=== PATIENT | female | born 1975 | race Caucasian/White ===

== ENCOUNTER → 2023-02-20 14:23 | Outpatient (BNVA) | payer OTHER, SELFPAY | PROVIDERS: PCP Family Medicine; Visit Provider Physician Assistant | DX: Z12.11 Encounter for screening for malignant neoplasm of colon (principal); K21.9 Gastro-esophageal reflux disease without esophagitis | CPT/HCPCS: 99202 ==

== ENCOUNTER 2023-10-21 10:55 | Day surgery (SDC) | payer OTHER, SELFPAY ==
--- NOTE | 2023-10-18 10:02 | P.CONAN_ITS ---
Documented by User: Tram Durbin NP 10/18/23 10:02 HPI - Anesthesia Eval Consult details Narrative: 47yo F for ?Upper Endoscopy and Colonoscopy [facility] Active Problems Active Problems: All Active Problems (Updated 02/20/23 @ 15:05 by Viviane Blount PA-C) Encounter for screening colonoscopy (Acute) Chronic GERD (Acute) Past Medical History Medical History (Updated 10/21/23 @ 11:09 by Zeinab Mo, RN) GERD (gastroesophageal reflux disease) HTN (hypertension) Surgical History Surgical History (Updated 10/21/23 @ 11:10 by Zeinab Mo, RN) No pertinent past surgical history Social History Social History (Updated 02/20/23 @ 15:04 by Viviane Blount PA-C) Household Members: Family Alcohol intake: current Alcohol intake frequency: holidays/special occasions only Patient Tobacco Use Status: Never used Tobacco Use of substances other than those prescribed or required for medical reasons: No Are you DNR?: No Advance Directives: No Advance Directives Information Provided: Yes Current occupational status: employed Current occupation: [employer] Allergies Allergy/AdvReac Type Severity Reaction Status Date / Time No Known Allergies Allergy Verified 10/21/23 11:10 Home Medications Medication Instructions Recorded Confirmed Last Taken Type fluticasone propionate 50 1 spray intranasal BID PRN Allergy 02/20/23 10/21/23 Unknown History mcg/actuation nasal Symptoms spray,suspension loratadine 10 mg tablet 10 mg PO QAM 02/20/23 10/21/23 Unknown History losartan 25 mg tablet 25 mg PO DAILY 10/21/23 10/21/23 Unknown History Assessment and Plan Assessment Anesthesia Assessment: Chart Reviewed Documented by User: Haydee Patino MD 10/21/23 12:15 [facility] Past Medical History Medical History (Updated 10/21/23 @ 11:09 by Zeinab Mo RN) GERD (gastroesophageal reflux disease) HTN (hypertension) Family History Family history of problems with anesthesia: No Surgical History Surgical History (Updated 10/21/23 @ 11:10 by Zeinab Mo RN) No pertinent past surgical history History of Problems with Anesthesia: No Social History Social History (Updated 02/20/23 @ 15:04 by Viviane Blount PA-C) Household Members: Family Alcohol intake: current Alcohol intake frequency: holidays/special occasions only Patient Tobacco Use Status: Never used Tobacco Use of substances other than those prescribed or required for medical reasons: No Are you DNR?: No Advance Directives: No Advance Directives Information Provided: Yes Current occupational status: employed Current occupation: [employer] Allergies Allergy/AdvReac Type Severity Reaction Status Date / Time No Known Allergies Allergy Verified 10/21/23 11:10 Home Medications Medication Instructions Recorded Confirmed Last Taken Type fluticasone propionate 50 1 spray intranasal BID PRN Allergy 02/20/23 10/21/23 Unknown History mcg/actuation nasal Symptoms spray,suspension loratadine 10 mg tablet 10 mg PO QAM 02/20/23 10/21/23 Unknown History losartan 25 mg tablet 25 mg PO DAILY 10/21/23 10/21/23 Unknown History Exam Airway Mallampati Class: II TM Dist: >3cm Neck ROM: Full Heart: rrr Lungs: cta Assessment and Plan Assessment Anesthesia Assessment: Anesthesia Plan Discussed Final Anesthetic Review Family History of Problems with Anesthesia: No History of Problems with Anesthesia: No NPO: Yes ASA Class: II Final Preanesthetic Review: No Changes in Pt Med Stat, Meds/Allgs Chart Reviewed and Consent Obtained/Reviewed Patient Risk: Intermediate Procedure Risk: Intermediate Anesthetic Plan Anesthetic Plan: MAC: Disposition: Standard PACU
[2023-10-21 11:27] VITALS: BP 128/91; PULSE 86; RESP 15; TEMP 36.9; O2SAT 99; BMI 27.6
--- NOTE | 2023-10-21 11:40 | MHC.SHP ---
Pre-Procedural Eval Section A Date of Service: 10/21/23 The patient is an INPATIENT: No The History & Physical has been completed within 30 days and I have reviewed it.: No Section B Chief Complaint: Gastro-esophageal reflux disease without esophagit Relevant Family History (Specify if Yes): No Relevant Social History: Tobacco Use Present Medications: see Short Stay Collaborative assessment Medical History: Significant History (Hypertension, GERD) History of Previous Operations: No relevant previous surgery Allergies: Allergies Allergy/AdvReac Type Severity Reaction Status Date / Time No Known Allergies Allergy Verified 10/21/23 11:10 Review of Systems Sugical H&P ROS: Negative: Constitution, Cardiovascular, Respiratory and Gastrointestinal Exam Surgical H&P Exam: Normal: Heart, Normal: Lungs, Normal: Extremities and Normal: Abdomen Plan Diagnosis/Plan: Unchanged I have reviewed the history and physical and performed a pertinent physical examination on my patient. No changes have occurred unless specified. Time Spent With Patient Time: Total time managing care of this patient today ____ minutes.
[2023-10-21] MEDS: Lactated Ringers 1,000 ML 100 ML IVCONT (12:03)
--- NOTE | 2023-10-21 12:27 | W.PM.OPN ---
Operative Note Operative Note Date of Service: 10/21/23 Narrative: FLEXIBLE TRANSORAL UPPER GASTROINTESTINAL ENDOSCOPY WITH BIOPSIES AND COLONOSCOPY TILL CECUM Pre-op diagnosis: Colon cancer screening, GERD Post-op diagnosis: GERD, gastritis, diverticulosis, hemorrhoids? Endoscopist:? Yonathan Martinez MD Anesthesia:?MAC UPPER ENDOSCOPY Consent: Indications for the procedure and potential complications of bleeding, perforation, reaction to medications and missed diagnosis were discussed with the patient and informed consent was obtained. Instrument: Olympus GIF H 190 mid size upper endoscope Monitoring: Vital signs and clinical assessment, continuous EKG monitoring, Pulse oximetry, Carbon Dioxide monitoring and blood pressure monitoring were done throughout the procedure. Procedure: The patient was placed in the left lateral decubitis position and pre-procedure medications were administered and a bite block was placed. The endoscope was inserted into the mouth and advanced under direct vision to the third part of duodenum. A careful inspection was made as the upper endoscope was withdrawn including a retroflexed examination of the proximal stomach; Findings and interventions are described below. Findings: Larynx: Normal Esophagus: GE junction at 34 cms. No esophagitis or Landaverde's. Stomach: Mild gastric erythema. Biopsies were obtained. Grade 2 flap valve on retroflexed examination of the cardia. Duodenum: Normal bulb and descending duodenum. Biopsies were obtained from 3rd part of duodenum to rule out celiac sprue Intervention: Biopsies as noted above COLONOSCOPY PROCEDURE NOTE Consent: Indications for the procedure and potential complications of bleeding, perforation, reaction to medications and missed diagnosis were discussed with the patient and informed consent was obtained. Instrument: Olympus PCF H 190 L variable stiffness pediatric colonoscope Monitoring: Vital signs and clinical assessment, intermittent blood pressure monitoring, continuous EKG monitoring, Pulse oximetry and Carbon Dioxide monitoring were done throughout the procedure. Colon withdrawl time was 15 minutes. Procedure: The patient was placed in the left lateral decubitis position and pre-procedure medications were administered. After a digital rectal examination of the ano-rectum, the video colonoscope was inserted into the rectum and advanced through the colon to the cecum. The colonoscope was slowly withdrawn in a retrograde panoramic fashion and the colon mucosa was carefully examined including a retroflexed view of the rectum. Findings and interventions are described below. Procedure Difficulty: : Without difficulty Findings: Terminal Ileum: Not evaluated Cecum: Normal Ascending Colon: Normal Transverse Colon: Normal Descending Colon: Normal Sigmoid Colon: Moderate diverticulosis Rectum: Normal Ano-rectum: Small internal hemorrhoids Colon preparation: Good after some irrigation Impression and Post Procedure Diagnosis: Endoscopy Findings: STOMACH: Antral gastritis DUODENUM: Normal - biopsied to check for celiac sprue Colonoscopy Findings: No polyps were detected Moderate diverticulosis seen in the sigmoid colon Small hemorrhoids on retroflexed exam. Plan: Await pathology results Patient has an appointment on 11/12/23 in the GI Clinic with BRANDON Pike . Repeat Colonoscopy in 10 years. Above findings were reviewed with the patient and GERD and diverticulosis handouts were given in the discharge area
[2023-10-21 13:00] VITALS: BP 112/72; PULSE 87; RESP 20; TEMP 36.4; O2SAT 100
[2023-10-21 13:15] VITALS: BP 130/77; PULSE 74; RESP 16; O2SAT 100
[2023-10-21 13:30] VITALS: BP 128/79; PULSE 60; RESP 16; TEMP 36.3; O2SAT 100
== END 2023-10-21 14:06 | disposition home or self-care (01) ==
PROVIDERS: PCP Family Medicine; Visit Provider Internal Medicine Gastroenterology
PROC: (CPT 45378; principal; 2023-10-21 12:30)
DX: Z12.11 Encounter for screening for malignant neoplasm of colon (principal); K57.30 Diverticulosis of large intestine without perforation or abscess without bleeding; K64.8 Other hemorrhoids; K21.9 Gastro-esophageal reflux disease without esophagitis; K29.50 Unspecified chronic gastritis without bleeding; I10 Essential (primary) hypertension; Z79.899 Other long term (current) drug therapy
CPT/HCPCS: 45378; 43239; 88305; 88342; J2704

== ENCOUNTER → 2023-10-21 10:55 | Outpatient (BNV) | payer OTHER, SELFPAY | PROVIDERS: PCP Family Medicine; Visit Provider Internal Medicine Gastroenterology | DX: Z12.11 Encounter for screening for malignant neoplasm of colon (principal); K57.30 Diverticulosis of large intestine without perforation or abscess without bleeding; K64.8 Other hemorrhoids; K21.9 Gastro-esophageal reflux disease without esophagitis; K29.70 Gastritis, unspecified, without bleeding | CPT/HCPCS: 43239; 45378 ==

== ENCOUNTER 2023-11-12 07:20 | Outpatient (AMB) | payer OTHER, SELFPAY ==
--- NOTE | 2023-11-12 07:47 | A.OFFVIS_ITS ---
Intake Vital Signs 11/12/23 07:48 Height 4 ft 11 in Weight 138 lb BMI 27.9 BP 128/85 Blood Pressure Location Lt brachial Position Sitting Pulse 64 Intake Visit Reasons: S.P Double; Dr. Martinez Intake Note: Patient follow up for EGD/Colonoscopy results. Patient denies any GI issues. Upfitter Required: No Accompanied by: Self / Same As Patient Allergies No Known Allergies Allergy (Verified 11/12/23 07:46) Medication List - Last Reconciled 11/12/23 by Viviane Blount PA-C docusate sodium (Colace) 200 mg (2 x 100 mg) PO BEDTIME fluticasone propionate 50 mcg/actuation 1 spray intranasal BID PRN loratadine 10 mg PO QAM losartan 25 mg PO DAILY methylcellulose (laxative) (Citrucel) 500 mg PO BID HPI HPI Comments History of Present Illness Details A pleasant 47 y/o female with GERD f/u after EGD and colonoscopy- she tolerated procedures well. Dietary modifcations with excellent response-she has not had any further acid reflux nor epigastric pain no nausea or vomiting appetite is good Bowels are normal no issues Discussed high-fiber diet foods to avoid with diverticula PFSH Medical History (Updated 11/12/23 @ 08:53 by Viviane Blount PA-C) GERD (gastroesophageal reflux disease) HTN (hypertension) Surgical History History of esophagogastroduodenoscopy (EGD) Hx of colonoscopy Hx of tubal ligation Social History Household Members: Family Alcohol intake: current Alcohol intake frequency: holidays/special occasions only Patient Tobacco Use Status: Never used Tobacco Current occupational status: employed 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[employer] Review of Systems Const All systems reviewed & are unremarkable except as noted in HPI and below Physical Exam Vital Signs: Last Vital Signs Pulse 64 11/12/23 07:48 BP 128/85 11/12/23 07:48 BMI result Body Mass Index 27.9 Const General: cooperative, healthy appearing, comfortable and no acute distress Orientation/consciousness: patient oriented x3 Limitations: no limitations Skin General skin exam: no rashes or lesions noted Neuro General: patient oriented x3 Extrem General: Yes full ROM Psych Appearance: grossly normal Mental Status: mental status grossly normal Speech and movement: Normal speech and movement present Affect: normal affect Attitude: cooperative Thought process: Normal thought process present Thought content: Normal thought content present Insight: Good insight present (Psych) Judgement: Good judgement present (Psych) Results Reviewed Results Reviewed: Findings: Terminal Ileum: Not evaluated Cecum: Normal Ascending Colon: Normal Transverse Colon: Normal Descending Colon: Normal Sigmoid Colon: Moderate diverticulosis Rectum: Normal Ano-rectum: Small internal hemorrhoids Colon preparation: Good after some irrigation Impression and Post Procedure Diagnosis: Endoscopy Findings: STOMACH: Antral gastritis DUODENUM: Normal - biopsied to check for celiac sprue Colonoscopy Findings: No polyps were detected Moderate diverticulosis seen in the sigmoid colon Small hemorrhoids on retroflexed exam. Plan: Await pathology results Patient has an appointment on 11/12/23 in the GI Clinic with BRANDON Pike . Repeat Colonoscopy in 10 years. Above findings were reviewed with the patient and GERD and diverticulosis handouts were given in the discharge area Name: Jennifer Wilkins Age/Sex: 47/F Attending: Yonathan Martinez MD : 1975 Submitted by: Yonathan Martinez MD Copies to: Beronica Box MD MR #: [id number] Status: [facility] Collected: 10/21/23 Location: [facility] Received: 10/21/23 Diagnosis A. Small bowel, biopsy: Small intestinal mucosa within normal limits; negative for celiac disease. B. Stomach, antrum, biopsy: Antral-type mucosa with moderate chronic inactive inflammation; no Helicobacter organisms seen. Clinical History Pre-Op Dx: Screening Post-Op Dx: Upper: GERD, gastritis; Lower: diverticulosis, hemorrhoids Microscopic Description A, B. Microscopic sections reviewed. Immunostain for H. pylori is non-reactive (B). Material Received A. Bx small bowel (r/o celiac disease) B. Bx gastric antrum (r/o H. pylori) Gross Description Received in 2 parts. Part A: Received in formalin labeled ?bx small bowel, rule out celiac disease? are 2 de-pink irregular tissue fragments measuring less than 0.1 and 0.35 cm, submitted in toto in a cassette labeled A. Part B: Received in formalin labeled ?bx gastric antrum, rule out H. pylori? are 2 de-pink irregular and rectangular tissue fragments measuring 0.25 and 0.35 cm, submitted in toto in a cassette labeled B. CEDS Special studies ordered and performed: immunostain for H. pylori on B Copies To Yonathan Martinez MD [address] [place] [address] [place] [address] Beronica Box MD [address] [facility] Patient: Jennifer Wilkins Age/Sex: 47/F MR#: [id number] Page 1 of 2 Assessment & Plan Assessment & Plan (1) Chronic GERD: Comment: Much improvement with dietary modification Code(s): K21.9 - Gastro-esophageal reflux disease without esophagitis Plan: Continue dietary modifications Avoid culprits (2) Diverticulosis: Code(s): K57.90 - Diverticulosis of intestine, part unspecified, without perforation or abscess without bleeding Plan: Reviewed diet Foods to avoid Diverticulosis/diverticulitis ER protocol (3) Gastritis: Code(s): K29.70 - Gastritis, unspecified, without bleeding Plan: Continue dietary modifications avoid culprits= (4) Hemorrhoids: Code(s): K64.9 - Unspecified hemorrhoids Plan: Maintain high-fiber diet Avoid straining Plan Repeat asymptomatic colonoscopy 10 years Patient Instructions: Reviewed procedure report, pathology and recommendations Maintain high-fiber diet Avoid straining Diverticulosis/diverticulitis ER protocol review Continue dietary modifications and avoidance of culprits Repeat asymptomatic colonoscopy 10 years Encouraged to call with questions or concerns Coding Level of Care Code Est Pt Level 3 (90178) Diagnoses Chronic GERD K21.9 Diverticulosis K57.90 Gastritis K29.70 Hemorrhoids K64.9 Time Spent (min) 20
[2023-11-12 07:48] VITALS: BP 128/85; PULSE 64; BMI 27.9
== END 2023-11-12 08:38 | disposition home or self-care (01) ==
PROVIDERS: PCP Family Medicine; Visit Provider Physician Assistant
DX: K21.9 Gastro-esophageal reflux disease without esophagitis (principal); K57.90 Diverticulosis of intestine, part unspecified, without perforation or abscess without bleeding; K29.70 Gastritis, unspecified, without bleeding; K64.9 Unspecified hemorrhoids
CPT/HCPCS: 99213

== ENCOUNTER → 2023-11-12 07:20 | Outpatient (BNVA) | payer OTHER, SELFPAY | PROVIDERS: PCP Family Medicine; Visit Provider Physician Assistant | DX: K21.9 Gastro-esophageal reflux disease without esophagitis (principal); K57.90 Diverticulosis of intestine, part unspecified, without perforation or abscess without bleeding; K29.70 Gastritis, unspecified, without bleeding; K64.9 Unspecified hemorrhoids | CPT/HCPCS: 99212 ==

== ENCOUNTER 2023-12-12 10:02 | Outpatient (REF) | payer OTHER, SELFPAY ==
[2023-12-12 11:52] LABS: Alanine Aminotransferase 23 U/L (0-31); Albumin Level 4.2 g/dL (3.5-5.0); Alkaline Phosphatase 91 U/L (39-117); Anion Gap 9 (12-20); Aspartate Amino Transferase 20 U/L (5-31); Bilirubin Total 0.5 mg/dL (0.0-1.0); Blood Urea Nitrogen 13 mg/dL (9-16); Calcium 9.3 mg/dL (8.4-10.2); Carbon Dioxide 27 mmol/L (22-29); Chloride 108 mmol/L (96-108); Cholesterol 158 mg/dL (<200); Estimated Glomerular Filt Rate > 60; Glucose Random 90 mg/dL (60-115); HDL Cholesterol 53 mg/dL (>40); LDL Cholesterol Calculated 89 mg/dL (<100); Potassium 4.2 mmol/L (3.3-5.1); Sodium 140 mmol/L (135-145); Total Protein 7.3 g/dL (6.5-8.0); Triglycerides 82 mg/dL (<150)
[2023-12-12 13:35] LABS: Reflex LDLD? No
== END 2023-12-12 10:03 | disposition home or self-care (01) ==
LOC: HO.HHCL 10:02
PROVIDERS: Visit Provider Family Medicine
DX: I10 Essential (primary) hypertension (principal)
CPT/HCPCS: 36415; 80053; 80061

== ENCOUNTER 2025-07-08 11:26 | Outpatient (REF) | payer OTHER, SELFPAY ==
--- OUTSIDE RECORDS SUMMARY | 2025-07-08 10:30 | XMS_ITS | Encounter Summary ---
Author Organization [employer] Address [address] [place] [address] Care Team Providers Care Radar Scientist Name Role Phone Beronica Box MD Primary Care Provider [phone] Encounter Details Date Type Department Care Team ([facility] Contact Info) Description 07/08/2025 10:30 AM EDT Office Visit [facility] [address] [place] [address] [phone] Beronica Box MD [address] [place], [place] [phone] Primary hypertension (Primary Dx); Gastroesophageal reflux disease, unspecified whether esophagitis present; Chronic constipation; Allergic rhinitis, unspecified seasonality, unspecified trigger; Abnormal mammogram; Dysplasia of cervix; Dietary counseling; Exercise counseling; Overweight; Screening for lipid disorders; Screening for diabetes mellitus; Vitamin D deficiency; Encounter for vaccination; Encounter for immunization Social History Tobacco Use Types Packs/Day Years Used Date Smoking Tobacco: Never Passive Smoke Exposure: Never Smokeless Tobacco: Never Alcohol Use Standard Drinks/Week Comments Defer 0 (1 standard drink = 0.6 oz pur e alcohol) Depression Answer Date Recorded Patient Health Questionnaire-9 Score 4 07/08/2025 Patient Health Questionnaire-9 Score 4 07/08/2025 Last PHQ-9: Questionnaire Data Not on file 1 Housing Stability Answer Date Recorded What is your housing situation today? I have maggie barnett 07/08/[address] you li ve. Do you have problems with any of the following? None of the above 07/08/2025 Food Insecurity Answer Date Recorded Within the past 12 months, y ou worried that your food would run out before you got money to buy more: Never True 07/08/2025 Within the past 12 months,th e food you bought just didn't last and you didn't have enough money to get more: Never True 11/2024 Transportation Answer Date Recorded In the past 12 months, has l ack of transportation kept you from medical appts, meetings, work or from getting things needed for daily living? No 07/08/2025 Utilities Answer Date Recorded In the past 12 months, has t he electric, gas, oil or water company threatened to shut off services in your home? No 07/08/2025 Depression Answer Date Recorded Patient Health Questionnaire-2 Score 2 07/08/2025 Internet Access Answer Date Recorded Internet Access Q1 Yes 07/08/2025 Internet Access Q2 Not on file 07/08/2025 Comments No Sex and Gender Information Value Date Recorded Sex Assigned at Female 08/06/2022 10:14 AM EDT Legal Sex Female 10:14 AM EDT Gender Identity Female 08/06/2022 10:14 AM EDT Sexual Orientation Don't know 08/06/2022 10 :14 AM EDT documented as of this encounter Last Filed Vital Signs Vital Sign Reading Time Taken Comments Blood Pressure 130/100 07/08/2025 10:44 AM EDT Pulse 78 07/08/2025 10:44 AM EDT Temperature 36.2 C (97.1 F) 07/08/2025 10:44 AM EDT Respiratory Rate 15 07/08/2025 10:4 4 AM EDT Oxygen Saturation 96% 07/08/2025 10: 44 AM EDT Inhaled Oxygen Concentration - - Weight 65.2 kg (143 lb 12.8 oz) 025 10:44 AM EDT Height 149.9 cm (4' 11 ) 07/08/2025 10: 44 AM EDT Body Mass Index 29.04 07/08/2025 10:44 AM EDT documented in this encounter Functional Status * Over the past 2 weeks, how often have you been bothered by any of the following problems? Question Answer Date of Assessment Author Patient Health Questionnaire -2 Score 2 07/08/2025 11:15 AM EDT Kameron Mccarthy, WIL * Little interest or pleasure in doing things Answer Date of Assessment Author Several days 07/08/2025 11:15 AM Patience Bolton MA * Feeling down, depressed, or hopeless Answer Date of Assessment Author Several days 07/08/2025 11:15 AM Patience Bolton MA * Trouble falling or staying asleep, or sleeping too much Answer Date of Assessment Author Several days 07/08/2025 11:15 AM Patience Bolton MA * Feeling tired or having little energy Answer Date of Assessment Author Several days 07/08/2025 11:15 AM Patience Bolton MA * Poor appetite or overeating Answer Date of Assessment Author Not at all 07/08/2025 11:15 AM Patience Bolton MA * Feeling bad about yourself - or that you are a failure or have let yourself or your family down Answer Date of Assessment Author Not at all 07/08/2025 11:15 AM Patinece Bolton MA * Trouble concentrating on things, such as reading the newspaper or watching television Answer Date of Assessment Author Not at all 07/08/2025 11:15 AM Patience Bolton MA * Moving or speaking so slowly that other people could have noticed? Or the opposite - being so fidgety or restless that you have been moving around a lot more than usual. Answer Date of Assessment Author Not at all 07/08/2025 11:15 AM Patience Bolton MA * Thoughts that you would be better off or hurting yourself in some way Answer Date of Assessment Author Not at all 07/08/2025 11:15 AM Patience Bolton MA * Patient Health Questionnaire-9 Score Answer Date of Assessment Author 4 07/08/2025 11:15 AM Patience Bolton MA * How difficult have these problems made it for you to do your work, take care of things at home, or get along with other people? Answer Date of Assessment Author Not difficult at all 07/08/2025 11:15 AM Patience Denise MA * Over the last 2 weeks, how often have you been bothered by any of the following problems? Question Answer Date of Assessment Author Feeling nervous, anxious, or on edge 1 07/08/2025 11:20 AM EDKameron Mcmullen MA Not being able to stop or control worrying 0 07/08/2025 11:20 AM Kameron Bolton MA Worrying too much about different things 1 07/08/2025 11:20 AM Kameron Bolton MA Trouble relaxing 0 07/08/2025 11:20 AM EDT Patience Mccarthy MA Being so restless that it is hard to sit still 0 07/08/2025 11:20 AM Kameron Bolton MA Becoming easily annoyed or irritable 1 07/08/2025 11:20 AM Kameron Bolton MA documented as of this encounter Miscellaneous Notes * Assessment & Plan Note - Beronica Box MD - 07/08/2025 5:39 AM EDTAssociated Problem(s): Abnormal mammogram -Most recent mammo on at [facility], BI-RADS 1. Next mammo scheduled in 1 year. Previous Hx abnormal Mammo -07/17/22, diagnostic L breast: BI RADS 3 repeat in 6 mo -01/10/21 BI-RADS 3, follow-up in 6 mo. -10/10/20 Left diagnostic mammo: BI-RADS 3 need a repeat in 3mo. -09/19/20 b/l screening mammo BI-RADS 0 -Screening mammo on 02/15/18, BI-RADS 0 due to L breast mass. Additional L breast mammo on 02/25/18 BI-RADS 3, 6-mo L Dx mammo on 08/29/18 Bi-RADS 3, * Assessment & Plan Note - Beronica Box MD - 07/08/2025 5:38 AM EDTAssociated Problem(s): Dysplasia of cervix -Followed by [facility], Dr. Maria -PAP on 06/04/22 ASCUS with positive HPV. -PAP on 10/24/22 LSIL. Negative high-risk HPV. -PAP on 05/06/23 ASCUS with negative high-risk HPV -PAP on 11/11/23 NILM with negative high-risk HPV - patient has upcoming appointment with new geomorphology teacher in September 2024 * Assessment & Plan Note - Beronica Box MD - 07/08/2025 5:38 AM EDTAssociated Problem(s): Chronic constipation -Seen by GI and prescribed laxatives -Colonoscopy 10/21/23, hemorrhoids and diverticulosis, repeat in 10 years -Pt reports adequate fiber intake -Continue current treatment plan * Assessment & Plan Note - Beronica Box MD - 07/08/2025 5:37 AM EDTAssociated Problem(s): Gastroesophageal reflux disease - Previously Rx Omeprazole - Pt is trying natural remedy and healthier diet - EGD on 10/21/23, antral gastritis - avoid NSAIDs and irritants * Assessment & Plan Note - Beronica Box MD - 07/08/2025 5:37 AM EDTAssociated Problem(s): Allergic rhinitis -Currently prescribed Cetrizine 10 mg. -Continue Flonase. * Assessment & Plan Note - Beronica Box MD - 07/08/2025 5:37 AM EDTAssociated Problem(s): Primary hypertension -Goal BP < 130/80 per ACC/AHA guideline (Treatment threshold >= 140/90 ) -Dx in March 2023 -BP at goal today -Referred to nephrology for 24-hour BP monitoring; seen on 07/31/23. Increased losartan from 12.5 mg to 25 mg daily. -Continue working on lifestyle modifications -Continue self-monitoring BP -Continue losartan 25 mg daily -Continue hydrochlorothiazide 12.5 mg daily -Follow up in 3 mo, sooner if any problem arises documented in this encounter Plan of Treatment Scheduled Orders Name Type Priority Associated Diagnoses Orde r Schedule Lipid Panel with Reflex to Direct LDL Lab Routine Screening for lipid disorders Expected: 07/08/2025 (Approximate), Expires: 07/08/2026 Comprehensive Metabolic Panel Lab Routine Primary hypertension Expected: 07/08/2025 (Approximate), Expires: 07/08/2026 Hemoglobin A1c Lab Routine Screening for diabetes mellitus Expected: 07/08/2025 (Approximate), Expires: 07/08/2026 Vitamin D, 25-Hydroxy, Total, Immunoassay Lab Routine Vitamin D deficiency Expected: 07/08/2025 (Approximate), Expires: 07/08/2026 documented as of this encounter Visit Diagnoses Diagnosis Primary hypertension- Primary Unspecified essential hypertension Gastroesophageal reflux disease, unspecified whether esophagitis present Chronic constipation Unspecified constipation Allergic rhinitis, unspecified seasonality, unspecified trigger Abnormal mammogram Abnormal mammogram, unspecified Dysplasia of cervix Dysplasia of cervix, unspecified Dietary counseling Dietary surveillance and counseling Exercise counseling Overweight Screening for lipid disorders Screening for diabetes mellitus Vitamin D deficiency Encounter for vaccination Encounter for immunization documented in this encounter Additional Health Concerns Assessment Noted Time PHQ-9 Depression Total Score: 4 07/08/20 25 11:15 AM EDT documented as of this encounter Care Teams Radar Scientist Relationship Specialty Start Date End Date Beronica Box MD [address] [place] [id number] PCP - General Family Medicine 10/07/18 documented as of this encounter
--- OUTSIDE RECORDS SUMMARY | 2025-07-08 13:18 | XMS_ITS | Encounter Summary ---
Author Organization [employer] Address [address] [facility] [address] [place] [address] Care Team Providers Care Etl Database Developer Name Role Phone Beronica Box MD Primary Care Provider [phone] Encounter Details Date Type Department Care Team ([facility] st Contact Info) Description 03/29/2023 Orders Only [facility] MEDICINE [address] [place] [id number] Provider, MD Lexi Social History Tobacco Use Types Packs/Day Years Used Date Smoking Tobacco: Never Passive Smoke Exposure: Never Smokeless Tobacco: Never Depression Answer Date Recorded Patient Health Questionnaire-9 Score 0 12/03/2022 Depression Answer Date Recorded Patient Health Questionnaire-2 Score 0 12/03/2022 Comments Unknown Sex and Gender Information Value Date Recorded Sex Assigned at Female 08/06/2022 10:14 AM EDT Legal Sex Female 10:14 AM EDT Gender Identity Female 08/06/2022 10:14 AM EDT Sexual Orientation Don't know 08/06/2022 10 :14 AM EDT COVID-19 Exposure Response Date Recorded In the last 10 days, have yo u been in contact with someone who was confirmed or suspected to have Coronavirus/COVID-19? No / Unsure 03/21/2023 9:06 AM EDT documented as of this encounter Plan of Treatment Not on file documented as of this encounter Procedures Procedure Name Priority Date/Time Associated Diagnosis Comments HEMATOXYLIN AND EOSIN STAIN Routine 10/21/2023 12:42 PM EST documented in this encounter Results * Hematoxylin and Eosin Stain (10/21/2023 12:42 PM EST) 10/21/2023 12:4 2 PM EST 10/21/2023 1:24 PM EST [facility] LABS - 10/22/2023 5:14 PM EST ----- ------- Name: Jennifer Wilkins Age/Sex: 47/F : 1975 Unit#: [id number] Attend Dr: Yonathan Martinez MD Re10/21/23 Status: [facility] Location: [facility] Disch: ----- ------- SPEC : [id number] RECD: 10/21/23-132 STATUS: BOGDAN VILLARREAL NUM: [id number] [place]ET: 10/21/23-[address] [facility] [address]: Yonathan Martinez MD ENTERED: 10/21/23-5115 SP TYPE: Surgical OTHR DR: Beronica Box MD ORDERED: HE Stain/6, Gross Micro L4/2, IHC/2, H. pylori/2 Diagnosis A. Small bowel, biopsy: Small intestinal mucosa within normal limits; negative for celiac disease. B. Stomach, antrum, biopsy: Antral-type mucosa with moderate chronic inactive inflammation; no Helicobacter organisms seen. Clinical History Pre-Op Dx: Screening Post-Op Dx: Upper: GERD, gastritis; Lower: diverticulosis, hemorrhoids Microscopic Description A, B. Microscopic sections reviewed. Immunostain for H. pylori is non-reactive (B). Material Received A. Bx small bowel (r/o celiac disease) B. Bx gastric antrum (r/o H. pylori) Gross Description Received in 2 parts. Part A: Received in formalin labeled bx small bowel, rule out celiac disease are 2 de- pink irregular tissue fragments measuring less than 0.1 and 0.35 cm, submitted in toto in a cassette labeled A. Part B: Received in formalin labeled bx gastric antrum, rule out H. pylori are 2 de-pink irregular and rectangular tissue fragments measuring 0.25 and 0.35 cm, submitted in toto in a cassette labeled B. CEDS Special studies ordered and performed: immunostain for H. pylori on B Copies To: Yonathan Martinez MD [address] [place] [address] [place] [address] CONTINUED ON NEXT PAGE ----- ------- Name: Jennifer Wilkins Age/Sex: 47/F : 1975 Unit#: [id number] Attend Dr: Yonathan aMrtinez MD Re10/21/23 Status: [facility] Location: [facility] Disch: ----- ------- SPEC : [id number] RECD: 10/21/23-132 STATUS: BOGDAN VILLARREAL NUM: [id number] NAVNEET: 10/21/23-[address] [facility] [address]: Yonathan Martinez MD ENTERED: 10/21/23-9643 SP TYPE: Surgical OTHR DR: Beronica Box MD ORDERED: HE Stain/6, Gross Micro L4/2, IHC/2, H. pylori/2 Copies To: (Continued) Beronica Box MD [address] [place] [address] ----- ------- Signed (signature on file) Alfonso Ridley MD 10/22/23 1714 ----- ------- END OF REPORT us Generic External Data Provider LAB BLOOD ORDERAB LES Final Result [facility] [address] [place] [address] [phone] documented in this encounter Visit Diagnoses Not on filedocumented in this encounter Additional Health Concerns Assessment Noted Time PHQ-9 Depression Total Score: 0 12/03/19 23 1:18 PM EST documented as of this encounter Care Teams Etl Database Developer Relationship Specialty Start Date End Date Beronica Box MD [address] [place] [address] PCP - General Family Medicine 10/07/18 documented as of this encounter
--- OUTSIDE RECORDS SUMMARY | 2025-07-08 13:18 | XMS_ITS | Encounter Summary ---
Author Organization [facility] Address [address] [facility] [address] [place] [address] Phone Care Team Providers Care Sas Bi Developer Name Role Phone Beronica Box MD Primary Care Provider [phone] Reason for Visit * Reason Comments Med Refill Encounter Details Date Type Department Care Team (Late st Contact Info) Description 12/14/2023 Refill [facility] [address] [facility] [address] [place] [phone] Joe Rose MD Essential (primary) hypertension Social History Tobacco Use Types Packs/Day Years Used Date Smoking Tobacco: Never Assessed Comments Unknown Sex and Gender Information Value Date Recorded Sex Assigned at Not on file Legal Sex Female 4:38 PM EDT Gender Identity Not on file Sexual Orientation Not on file documented as of this encounter Plan of Treatment Upcoming Encounters Date Type Department Care Team (Late st Contact Info) Description 09/08/2025 4:15 PM EST Office Visit [facility] [address] [phone] Dottie French ARNP [address] [facility] [address] [place] [address] documented as of this encounter Visit Diagnoses Diagnosis Essential (primary) hypertension documented in this encounter Care Teams Sas Bi Developer Relationship Specialty Start Date End Date Beronica Box MD [address] [place] [id number] PCP - General Family Medicine 07/03/23 documented as of this encounter
--- OUTSIDE RECORDS SUMMARY | 2025-07-08 13:18 | XMS_ITS | Encounter Summary ---
Author Organization [employer] Address [address] [place] [address] Care Team Providers Care Shank Inspector Name Role Phone Beronica Box MD Primary Care Provider Encounter Details Date Type Department Care Team ([facility] st Contact Info) Description 10/13/2024 Orders Only [facility] MEDICINE [address] [place] [address] Provider, MD Lexi Social History Tobacco Use Types Packs/Day Years Used Date Smoking Tobacco: Never Passive Smoke Exposure: Never Smokeless Tobacco: Never Alcohol Use Standard Drinks/Week Comments Defer 0 (1 standard drink = 0.6 oz pur e alcohol) Depression Answer Date Recorded Patient Health Questionnaire-9 Score 0 03/10/2024 Patient Health Questionnaire-9 Score 0 03/10/2024 Last PHQ-9: Questionnaire Data Not on file 0 03/10/2024 Housing Stability Answer Date Recorded What is your housing situation today? I have maggie barnett 12/04/[address] you li ve. Do you have problems with any of the following? None of the above 12/04/2023 Food Insecurity Answer Date Recorded Within the past 12 months, y ou worried that your food would run out before you got money to buy more: Never True 12/04/2023 Within the past 12 months,th e food you bought just didn't last and you didn't have enough money to get more: Never True Transportation Answer Date Recorded In the past 12 months, has l ack of transportation kept you from medical appts, meetings, work or from getting things needed for daily living? No 12/04/2023 Utilities Answer Date Recorded In the past 12 months, has t he electric, gas, oil or water company threatened to shut off services in your home? No 12/04/2023 Depression Answer Date Recorded Patient Health Questionnaire-2 Score 0 03/10/2024 Comments Unknown Sex and Gender Information Value Date Recorded Sex Assigned at Female 08/06/2022 10:14 AM EDT Legal Sex Female 10:14 AM EDT Gender Identity Female 08/06/2022 10:14 AM EDT Sexual Orientation Don't know 08/06/2022 10 :14 AM EDT documented as of this encounter Plan of Treatment Not on file documented as of this encounter Procedures Procedure Name Priority Date/Time Associated Diagnosis Comments BIOPSY CERVIX Routine 09/16/2024 9:44 AM EST documented in this encounter Results * Biopsy cervix (09/16/2024 9:44 AM EST) us Historical Provider MD IN CLINIC/BEDSIDE ORDERAB LES Final Result Performing Organization Address [facility]/State/[facility] Co de Phone Number [facility] [address] [place] [address] documented in this encounter Visit Diagnoses Not on filedocumented in this encounter Additional Health Concerns Assessment Noted Time PHQ-9 Depression Total Score: 0 03/10/20 24 11:17 AM EDT documented as of this encounter Care Teams Shank Inspector Relationship Specialty Start Date End Date Beronica Box MD [address] [place] [address] PCP - General Family Medicine 10/07/18 documented as of this encounter
--- OUTSIDE RECORDS SUMMARY | 2025-07-08 13:18 | XMS_ITS | Encounter Summary ---
Author Organization [employer] Address [address] [place] [address] Care Team Providers Care It Audit Manager Name Role Phone Beronica Box MD Primary Care Provider [phone] Reason for Visit * Reason Onset Date Comments chart prep 07/07/2025 Encounter Details Date Type Department Care Team ([facility] Contact Info) Description 07/07/2025 Telephone [facility] MEDICINE [address] [place], [place] [phone] Beronica Box MD [address] [place], [place] [phone] chart prep Social History Tobacco Use Types Packs/Day Years [...] Access Q2 Not on file 07/08/2025 Comments Unknown Sex and Gender Information Value Date Recorded Sex Assigned at Female 08/06/2022 10:14 AM EDT Legal Sex Female 10:14 AM EDT Gender Identity Female 08/06/2022 10:14 AM EDT Sexual Orientation Don't know 08/06/2022 10 :14 AM EDT documented as of this encounter Miscellaneous Notes * Telephone Encounter - Vee Michaud MA - 07/07/2025 3:10 PM EDT Chart Prep Labs: done Images: done Referrals: not applicable Vaccines due: Covid and Flu Screenings: colonoscopy Overdue care gaps: SDOH, PHQ-9, GERMÁN-7, Oral health screening, and Disability screen documented in this encounter Plan of Treatment Not on file documented as of this encounter Visit Diagnoses Not on filedocumented in this encounter Additional Health Concerns Assessment Noted Time PHQ-9 Depression Total Score: 0 03/10/20 24 11:17 AM EDT documented as of this encounter Care Teams It Audit Manager Relationship Specialty Start Date End Date Beronica Box MD [address] [facility] [place] [id number] PCP - General Family Medicine 10/07/18 documented as of this encounter
--- OUTSIDE RECORDS SUMMARY | 2025-07-08 13:18 | XMS_ITS | Clinical Summary ---
Author Organization [employer] Address [address] [place] [address] Care Team Providers Care Electronic Intelligence Officer Name Role Phone Beronica Box MD Primary Care Provider [phone] Allergies No known active allergies Medications cetirizine (ZyrTEC) 10 MG tablet Take 1 tablet (10 mg) by mouth in the morning. 30 tablet 11 12/12/19 24 Active Fiber 500 MG capsule Take 500 mg by mouth if needed at bedtime. 02/21/20 23 Active hydroCHLOROthi azide (HYDRODiuril) 12.5 MG tablet Take 12.5 mg by mouth Once per day. 01/16/20 24 Active Misc. Devices (Pulse Oximeter For Finger) miscIndication s:Cough in adult patient,COVID- 19 Call the office if the O2sat < 90% 1 each 05/25/20 24 Active cyclobenzaprin e (Flexeril) 5 MG tablet TAKE 1 OR 2 TABLETS BY MOUTH AT NIGHT NEEDED FOR MUSCLE SPASM 30 tablet 11/09/19 25 Active losartan (Cozaar) 50 MG tablet Take 1 tablet by mouth Once per day. 06/09/20 25 Active losartan (Cozaar) 25 MG tablet Take 25 mg by mouth Once per day. 10/21/19 24 025 Discontinued(Me d list cleanup (will not trigger notification to Pharmacy)) Active Problems Problem Noted Date Diagnosed Date Primary hypertension 03/21/2023 Assessment & Plan (07/08/2025 5:37 AM EDT): -Goal BP < 130/80 per ACC/AHA guideline [...] 3 mo, sooner if any problem arises Assessment & Plan (07/28/2024 11:24 AM EDT): -Goal BP < 140/90 per JNC-8 and < 130/80 per ACC/AHA guideline (Treatment threshold [...] 3 mo, sooner if any problem arises Assessment & Plan (03/10/2024 12:27 PM EDT): -Goal BP < 140/90 per JNC-8 and < 130/80 per ACC/AHA guideline (Treatment threshold >= 140/90 ) -Dx in March 2023 -Referred to nephrology for 24-hour BP monitoring; seen on 07/31/23. Increased losartan from 12.5 mg to 25 mg daily. -Continue working on lifestyle modifications -Continue self-monitoring BP -Continue losartan 25 mg daily -Continue hydrochlorothiazide 12.5 mg daily -Follow up in 3 mo, sooner if any problem arises Assessment & Plan (12/14/2023 5:23 AM EST): -Goal BP < 140/90 per JNC-8 and < 130/80 per ACC/AHA guideline (Treatment threshold >= 140/90 ) -Dx in March 2023 -Referred to nephrology for 24-hour BP monitoring; seen on 07/31/23. Increased losartan from 12.5 mg to 25 mg daily. -Continue working on lifestyle modifications -Continue self-monitoring BP -Continue losartan 25 mg daily -Follow up in 3 mo, sooner if any problem arises Assessment & Plan (10/02/2023 5:14 PM EST): -Goal BP < 140/90 per JNC-8 and < 130/80 per ACC/AHA guideline (Treatment threshold >= ) -Dx in March 2023 -Referred to nephrology for 24-hour BP monitoring; seen on 07/31/23. Increased losartan from 12.5 mg to 25 mg daily. -Continue working on lifestyle modifications -Continue self-monitoring BP -Continue losartan 25 mg daily -Follow up in 3 mo, sooner if any problem arises Assessment & Plan (06/29/2023 4:27 PM EDT): -Goal BP < 140/90 per JNC-8 and < 130/80 per ACC/AHA guideline (Treatment threshold >= ) -Dx in March 2023 -SBP is mostly within acceptable range at home, but DBP is higher than 90 -Continue working on lifestyle modifications -Continue self-monitoring BP -Continue losartan 12.5 mg daily -Follow up in 3 mo, sooner if any problem arises -Refer to nephrology for 24 hour BP monitoring Assessment & Plan (03/21/2023 9:58 AM EDT): -Goal BP < 140/90 per JNC-8 and < 130/80 per ACC/AHA guideline (Treatment threshold >= ) -Elevated BP. Newly Dx HTN -Continue working on lifestyle modifications -Recommended self-monitoring BP. -Start losartan 12.5 mg daily -Follow up in 3-6 mo, sooner if any problem arises Abnormal mammogram 12/01/2022 Assessment & Plan (07/08/2025 5:40 AM EDT): -Most recent mammo on at [facility], BI-RADS 1. Next mammo scheduled in 1 [...] L Dx mammo on 08/29/18 Bi-RADS 3, Assessment & Plan (07/28/2024 11:50 AM EDT): -Most recent mammo on 01/21/24 at [facility], BI-RADS 2. Next mammo scheduled in 1 year. Previous [...] L Dx mammo on 08/29/18 Bi-RADS 3, Assessment & Plan (12/13/2023 2:27 PM EST): -Most recent mammo on 01/18/23 at [facility], BI-RADS 2. Next mammo scheduled on 01/21/24 Previous Hx abnormal Mammo -07/17/22, diagnostic L [...] L Dx mammo on 08/29/18 Bi-RADS 3, Assessment & Plan (10/01/2023 6:03 AM EST): -Most recent mammo on 01/18/23 at [facility], BI-RADS 2. Next mammo in 1 year. Previous Hx abnormal Mammo [...] L Dx mammo on 08/29/18 Bi-RADS 3, recommended b/l Dx mammo in 6 mo Assessment & Plan (06/29/2023 4:42 PM EDT): -Most recent mammo on 01/18/23 at [facility], BI-RADS 2. Next mammo in 1 year. Previous Hx abnormal Mammo [...] L Dx mammo on 08/29/18 Bi-RADS 3, recommended b/l Dx mammo in 6 mo Assessment & Plan (03/25/2023 6:10 PM EDT): -Most recent mammo on 01/18/23 at [facility], normal per pt. Next mammo in 1 year. -07/17/22, diagnostic L breast: BI RADS 3 repeat in 6 mo -01/10/21 BI-RADS 3, follow-up in 6 mo. -10/10/20 Left diagnostic mammo: BI-RADS 3 need a repeat in 3mo. -09/19/20 b/l screening mammo BI-RADS 0 Previous Hx abnormal Mammo -Screening mammo on 02/15/18, BI-RADS 0 due to L breast mass. Additional L breast mammo on 02/25/18 BI-RADS 3, 6-mo L Dx mammo on 08/29/18 Bi-RADS 3, recommended b/l Dx mammo in 6 mo Assessment & Plan (12/05/2022 6:02 AM EST): Most recent mammo on 07/17/22, diagnostic L breast: BI RADS 3 -anticipating repeat mammograms in January 2023 -01/10/21 BI-RADS 3, follow-up in 6 mo. -10/10/20 Left diagnostic mammo: BI-RADS 3 need a repeat in 3mo. -09/19/20 b/l screening mammo BI-RADS 0 Previous Hx abnormal Mammo -Screening mammo on 02/15/18, BI-RADS 0 due to L breast mass. Additional L breast mammo on 02/25/18 BI-RADS 3, 6-mo L Dx mammo on 08/29/18 Bi-RADS 3, recommended b/l Dx mammo in 6 mo Dysplasia of cervix 12/01/2022 Assessment & Plan (07/08/2025 5:38 AM EDT): -Followed by Vocational Aide, Dr. Maria -PAP on 06/04/22 ASCUS with positive HPV. -PAP on 10/24/22 LSIL. Negative high-risk HPV. -PAP on 05/06/23 ASCUS with negative high-risk HPV -PAP on 11/11/23 NILM with negative high-risk HPV - patient has upcoming appointment with new key punch teacher in September 2024 Assessment & Plan (07/28/2024 11:49 AM EDT): -Followed by Vocational AideDr. Maria -PAP on 06/04/22 ASCUS with positive HPV. -PAP on 10/24/22 LSIL. Negative high-risk HPV. -PAP on 05/06/23 ASCUS with negative high-risk HPV -PAP on 11/11/23 NILM with negative high-risk HPV - patient has upcoming appointment with new key punch teacher in September 2024 Assessment & Plan (12/12/2023 5:17 AM EST): -Followed by Vocational AideDr. Maria -PAP on 06/04/22 ASCUS with positive HPV. -PAP on 10/24/22 LSIL. Negative high-risk HPV. -PAP on 05/06/23 ASCUS with negative high-risk HPV -PAP on 11/11/23 NILM with negative high-risk HPV Assessment & Plan (10/01/2023 6:02 AM EST): -Followed by Vocational AideDr. Maria -PAP on 06/04/22 ASCUS with positive HPV. -PAP on 10/24/22 LSIL. Negative high-risk HPV. -PAP on 05/06/23 ASCUS with negative high-risk HPV Assessment & Plan (06/29/2023 4:30 PM EDT): -Followed by Vocational AideDr. Maria -PAP on 06/04/22 ASCUS with positive HPV. -PAP on 10/24/22 LSIL. Negative high-risk HPV. -PAP on 05/06/23 ASCUS with negative high-risk HPV Assessment & Plan (03/20/2023 5:43 AM EDT): -Followed by Vocational AideDr. Maria -PAP on 06/04/22 ASCUS with positive HPV. -PAP on 10/24/22 LSIL. Negative high-risk HPV. Assessment & Plan (12/05/2022 6:05 AM EST): -Followed by Vocational AideDr. Crow on 06/04/22 ASCUS with positive HPV. -Upcoming appt with Dr. Maria Gastroesophageal reflux disease 01/17/2015 Assessment & Plan (07/08/2025 5:37 AM EDT): - Previously Rx Omeprazole - Pt is trying natural remedy and healthier diet - EGD on 10/21/23, antral gastritis - avoid NSAIDs and irritants Assessment & Plan (07/28/2024 11:24 AM EDT): - Previously Rx Omeprazole - Pt is trying natural remedy and healthier diet - EGD on 10/21/23, antral gastritis - avoid NSAIDs and irritants Assessment & Plan (03/10/2024 11:51 AM EDT): - Previously Rx Omeprazole - Pt is trying natural remedy and healthier diet - EGD on 10/21/23, antral gastritis - avoid NSAIDs and irritants Assessment & Plan (12/14/2023 5:29 AM EST): - Previously Rx Omeprazole - Pt is trying natural remedy and healthier diet - EGD on 10/21/23, antral gastritis - avoid NSAIDs and irritants Assessment & Plan (06/29/2023 4:39 PM EDT): Previously Rx Omeprazole -Pt is trying natural remedy and healthier diet -Seen by GI In February 2023, and plan for EGD and colonoscopy. Not scheduled yet. Assessment & Plan (12/03/2022 2:26 PM EST): Previously Rx Omeprazole -Pt is trying natural remedy and healthier diet -requested EGDwith colon cancer screening History of Helicobacter pylori infection 015 Assessment & Plan (12/02/2022 12:21 PM EST): - s/p treatment in 2012 - negative stool antigen in January 2021 and negative breath test in May 2021 Allergic rhinitis 07/31/2012 Assessment & Plan (07/08/2025 5:37 AM EDT): -Currently prescribed Cetrizine 10 mg. -Continue Flonase. Assessment & Plan (07/28/2024 11:24 AM EDT): -Discontinue Loratadine. -Start Cetrizine 10 mg. -Continue Flonase. Assessment & Plan (12/13/2023 2:24 PM EST): -Discontinue Loratadine. -Start Cetrizine 10 mg. -Continue Flonase. Assessment & Plan (12/03/2022 2:18 PM EST): -Continue Loratadine -Continue Flonase Chronic constipation 07/31/2012 Assessment & Plan (07/08/2025 5:38 AM EDT): -Seen by GI and prescribed laxatives -Colonoscopy 10/21/23, hemorrhoids and diverticulosis, repeat in 10 years -Pt reports adequate fiber intake -Continue current treatment plan Assessment & Plan (03/10/2024 11:51 AM EDT): -Seen by GI and prescribed laxatives -Colonoscopy 10/21/23, hemorrhoids and diverticulosis, repeat in 10 years -Pt reports adequate fiber intake -Continue current treatment plan Assessment & Plan (12/14/2023 5:28 AM EST): -Seen by GI and prescribed laxatives -Colonoscopy 10/21/23, hemorrhoids and diverticulosis, repeat in 10 years -Pt reports adequate fiber intake -Continue current treatment plan Assessment & Plan (06/29/2023 4:36 PM EDT): -Seen by GI and prescribed laxatives -Pt reports adequate fiber intake -Check the status of EGD and Colonoscopy Assessment & Plan (12/03/2022 2:20 PM EST): Dislikes colace -Pt reports adequate fiber intake -will refer for Colon Cancer Screening, with EGD and Colonoscopy Resolved Problems Problem Noted Date Diagnosed Date Resolved Date Elevated blood pressure read ing without diagnosis of hypertension 12/03/2022 06/25/2023 Assessment & Plan (03/25/2023 6:08 PM EDT): - home BP is elevated - newly Dx HTN Assessment & Plan (12/03/2022 2:12 PM EST): -Goal BP < 140/90 per JNC-8 and < 130/80 per ACC/AHA guideline (Treatment threshold >=140/90 ) -Continue working on lifestyle modifications -Recommended self-monitoring BP. -Follow up in 4-6 mo, sooner if any problem arises Encounters Date Type Department Care Team Description 07/08/2025 10:30 AM EDT Office Visit [address] [address] Beronica Box MD Primary hypertension (Primary Dx); Gastroesophageal reflux disease, unspecified whether esophagitis present; Chronic constipation; Allergic rhinitis, unspecified seasonality, unspecified trigger; Abnormal mammogram; Dysplasia of cervix; Dietary counseling; Exercise counseling; Overweight; Screening for lipid disorders; Screening for diabetes mellitus; Vitamin D deficiency; Encounter for vaccination; Encounter for immunization 07/08/[address] [address] Patience Mccarthy [place] 07/08/2025 Travel 07/07/[address] [address] Beronica Box MD chart prep 07/01/2025 Patient Outreach [facility] [address] [place] [address] Beronica Box MD Pre-visit Planning ([facility] unable to reach [facility] ) 06/21/2025 Orders Only [facility] [address] [place] [address] ProviderLexi MD from Last 3 Months Immunizations Immunization Administration Dates Next Due Hep B, adult 12/16/2001,04/29/2001,03/20/2001 Influenza injectable quadriv alent preservative free 10/01/2023,12/03/2022,08/05/2021,2019,08/18/2019,09/10/2018 Influenza, IIV3, injectable 06/23/2010, 9 Influenza, Unspecified 06/23/2010,07/05/2009 Influenza, seasonal, injecta ble, preservative free 07/08/2025,07/12/2017,07/10/2016,2014 MMR 05/23/2009 Pfizer Covid-19 Vaccine 12+ 07/08/2025, 3 TD (adult), 2 Lf tetanus tox oid, preservative free, adsorbed 08/16/1999 Tdap 08/05/2021, 0,07/12/2017,2014,08/07/2012 Varicella 05/23/2009 Family History Relation Name Status Comments Father Mother Alive Social History Tobacco Use Types Packs/Day Years Used Date Smoking Tobacco: Never Passive Smoke Exposure: Never Smokeless Tobacco: Never Tobacco Cessation:Counseling Given: Not Answered Alcohol Use Standard Drinks/Week Comments Defer 0 (1 standard drink = 0.6 oz pur e alcohol) Depression Answer Date Recorded Patient Health Questionnaire-9 Score 4 07/08/2025 Patient Health Questionnaire-9 Score 4 07/08/2025 Last PHQ-9: Questionnaire Data Not on file 1 Housing Stability Answer Date Recorded What is your housing situation today? I have maggiemayela barnett 07/08/[address] you [...] Don't know 08/06/2022 10 :14 AM EDT Last Filed Vital Signs Vital Sign Reading [...] Mass Index 29.04 07/08/2025 10:44 AM EDT Plan of Treatment Health Maintenance Due Date Last Done Comments CT Colonography 1976 Dental X-Ray: Full Mouth 1976 FIT DNA/Cologuard 1976 FIT 1976 FOBT 1976 Sigmoidoscopy 1976 Family Planning (PISQ) 12/21/1991 Dental Prophylaxis 02/18/2015 08/20/2014, 0 02/16/2014, 06/23/2013 Dental Oral Exam 06/12/2015 12/09/2014, , 08/14/2013 Dental X-Ray: Bitewings 08/21/2015 08/20/2014, 08/14 Alcohol/Substance Use Screening 07/28/2025 07/28/2024 Cervical Cancer Screening 09/16/2025 HPV/Cotest 09/16/2025 09/16/2024, 02/0 01/2024, 05/06/2023, Additional history exists Pap Smear 09/16/2025 09/16/2024, 02/0 01/2024, 05/06/2023, Additional history exists Depression Screening 07/08/2026 07/08/2025, 07/08/20 25 Disability Screening 07/08/2026 07/08/2025 SDOH Screening 07/08/2026 07/08/2025 Tobacco Screening 07/08/2026 07/08/2025 Zoster Vaccines (1 of 2) 2026 Mammogram 02/10/2027 02/10/2025, 01/18/2023 Lipid Panel 12/11/2028 12/12/2023, 12/03/2022 DTaP/Tdap/Td Vaccines (6 - Td or Tdap) 08/05/2031 08/05/2021, 09/11/2020, 07/12/2017, Additional history exists Colonoscopy 10/07/2033 10/21/2023, 10/21/2023 Colorectal Cancer Screening 10/07/2033 RSV Patients and Patients Aged 60 years or older (1 - 1-dose 75+ series) 12/21/2051 Hepatitis B Vaccines Completed 12/16/2001, 04/29/2001, 03/20/2001 HIV Screening Completed 12/03/2022 Hepatitis C Screening Completed 12/03/2022 Colposcopy Completed 09/16/2024, 09/16/2014 COVID-19 Vaccine Completed 07/08/2025, , 08/23/2022, Additional history exists Influenza Vaccine Completed 07/08/2025, , 12/03/2022, Additional history exists HIB Vaccines Aged Out No longer eligi ble based on patient's age to complete this topic HPV Vaccines Aged Out No longer eligi ble based on patient's age to complete this topic Hepatitis A Vaccines Aged Out No long er eligible based on patient's age to complete this topic IPV Vaccines Aged Out No longer eligi ble based on patient's age to complete this topic Meningococcal B Vaccine Aged Out No l onger eligible based on patient's age to complete this topic Meningococcal Vaccine Aged Out No nafisa gen eligible based on patient's age to complete this topic Pneumococcal Vaccine: Pediatrics (0 to 5 Years) and At-Risk Patients (6 to 49) Years Aged Out No longer eligible based on patient's age to complete this topic RSV under 20 months Aged Out No longe r eligible based on patient's age to complete this topic Rotavirus Vaccines Aged Out No longer eligible based on patient's age to complete this topic Procedures Procedure Name Priority Date/Time Associated Diagnosis Comments HM MAMMOGRAPHY Routine 02/10/2025 10:07 AM EDT BIOPSY CERVIX Routine 09/16/2024 9:44 AM EST HM PAP/HPV Routine 09/16/2024 12:00 AM EST LIPID PANEL WITH REFLEX TO DIRECT LDL Routine 12/12/2023 10:06 AM EST Primary hypertension COLONOSCOPY Routine 10/21/2023 HEPATITIS C AB W/REFL TO HCV RNA, QN, PCR Routine 12/03/2022 2:13 PM EST Routine screening for STI (sexually transmitted infection) HIV 1/2 ANTIGEN/ANTIBODY, FOURTH GENERATION W/RFL Routine 12/03/2022 2:13 PM EST Routine screening for STI (sexually transmitted infection) PERIODIC ORAL EVALUATION - ESTABLISHED PATIENT Routine 12/09/2014 12:00 AM EST PROPHYLAXIS - ADULT Routine 08/20/2014 1 2:00 AM EST BITEWINGS - 4 RADIOGRAPHIC IMAGES Routine 08/20/2014 12:00 AM EST from Last 3 Months or Most Recently Relevant to Health Maintenance Results * Mammography (02/10/2025 10:07 AM EDT) Anatomical Region Laterality Modality Other us Historical Provider HEALTH MAINTENANCE Final Result * Biopsy cervix (09/16/2024 9:44 AM EST) Historical Provider IN CLINIC/BEDSIDE ORDERAB LES Final Result [facility] [address] [place] [address] * PAP/HPV (09/16/2024 12:00 AM EST) Pap Smear 1. NILM 1. NILM HPV Not Detected Undetected, Indeterminat e, Quantitative , Not Detected us Historical Provider HEALTH MAINTENANCE Edited Result - Final * Lipid Panel with Reflex to Direct LDL (12/12/2023 10:06 AM EST) Triglycerides 82 <150 mg/dL [facility] Comment:Desirable Triglyceri de: less than 150 mg/dLBorderline High Triglyceride 150-199 mg/dLHigh Triglyceride: 200-499 mg/dLVery High Triglyceride: greater than or equal to 5OO mg/dL Cholesterol 158 <200 mg/dL [facility] Comment:Desirable Cholestero l: less than 200 mg/dLBorderline High Cholesterol: 200-239 mg/dLHigh Cholesterol: greater than 239 mg/dL LDL Cholesterol Calculated 89 <100 mg/dL [facility] Comment:Desirable LDL: less than 100 mg/dLNear Optimal/Above Optimal LDL: 110- 129 mg/dLBorderline High LDL: 130-159 mg/dLHigh LDL: 160-189 mg/dLVery High LDL: greater than or equal to 190 mg/dL HDL Cholesterol 53 >40 mg/dL [facility] Comment:Desirable HDL: great er than 40 mg/dL Note: This HDL assay may give artificially low results in patients with liver disease. Blood 12/12/2023 10:0 6 AM EST 12/12/2023 11:31 AM EST Beronica Box MD LAB BLOOD ORDERABLES Final Resul t [facility] [address] [place] [phone] * Hm Colonoscopy (10/21/2023) Colonoscopy Normal Normal Lexi Provider HEALTH MAINTENANCE Final Result * Hepatitis C Antibody with Reflex to HCV, RNA, Quantitative, Real-Time PCR (12/03/2022 2:13 PM EST) Hepatitis C Antibody NON-REACT NENO NON-REACT NENO [facility] Index <0.02 <1.00 [facility] Comment: HCV antibody was non-reactive. There is no laboratory evidence of HCV infection. In most cases, no further action is required. However, if recent HCV exposure is suspected, a test for HCV RNA (test code 71446) is suggested. For additional information please refer to http://education.AskNshare.[employer]/faq/EBM08j2 (This link is being provided for informational/ educational purposes only.) Blood Venous blood specimen / Unknown 12/03/2022 2:13 PM EST 12/03/2022 2:14 PM EST Narrative [facility] - 12/04/2022 12:53 PM EST FASTING:NO FASTING: NO Beronica Box MD LAB BLOOD ORDERABLES Final Resul t Performing Organization Address [facility] Co de Phone Number [address], [place] [address] [facility] [place] [facility] [address] [facility], ([address]) [place] [address] * HIV-1/2 Antigen and Antibodies, Fourth Generation, with Reflexes (12/03/2022 2:13 PM EST) Pathologist [facility] HIV Antigen/Antibody, 4th Generation NON-REAC TIVE NON-REAC TIVE [facility] [place] [facility] Comment: HIV-1 antigen and HIV-1/HIV-2 antibodies were not detected. There is no laboratory evidence of HIV infection. PLEASE NOTE: This information has been disclosed to you from records whose confidentiality may be protected by state law. If your state requires such protection, then the state law prohibits you from making any further disclosure of the information without the specific written consent of the person to whom it pertains, or as otherwise permitted by law. A general authorization for the release of medical or other information is NOT sufficient for this purpose. For additional information please refer to http://education.AskNshare.[employer]/faq/MAW511 (This link is being provided for informational/ educational purposes only.) The performance of this assay has not been clinically validated in patients less than 2 years old. Blood Venous blood specimen / Unknown 12/03/2022 2:13 PM EST 12/03/2022 2:14 PM EST Narrative [facility] - 12/04/2022 12:53 PM EST FASTING:NO FASTING: NO Beronica Box MD LAB BLOOD ORDERABLES Final Resul t [address], [place] [address] [facility] [place] [facility] [address] [facility], ([address]) [place] [address] from Last 3 Months or Most Recently Relevant to Health Maintenance Insurance [facility] Care Teams Electronic Intelligence Officer Relationship Specialty Start Date End Date Beronica Box MD [address] [place] [phone] PCP - General Family Medicine 10/07/18
--- OUTSIDE RECORDS SUMMARY | 2025-07-08 13:18 | XMS_ITS | Encounter Summary ---
Author Organization [employer] Address [address] [place] [address] Care Team Providers Care Director Data Name Role Phone Beronica Box MD Primary Care Provider [phone] Encounter Details Date Type Department Care Team (Latest Contact Info) Description 07/08/2025 Travel Social History Tobacco Use Types Packs/Day Years [...] AM EDT documented as of this encounter Functional Status * Over the past 2 weeks, how often have you been bothered by any of the following problems? Question Answer Date of Assessment Author Patient Health Questionnaire -2 Score 2 07/08/2025 11:15 AM Kameron Bolton MA * Little interest or pleasure in doing [...] 11:15 AM Patience Bolton MA * Trouble concentrating on things, [...] of Assessment Author 4 07/08/2025 11:15 AM CATYT Patience Mccarthy MA * How difficult have these problems made it for you to do your work, take care of things at home, or get along with other people? Answer Date of Assessment Author Not difficult at all 07/08/2025 11:15 AM EDT Patience Gomez MA * Over the last 2 weeks, how often have you been bothered by any of the following problems? Question Answer Date of Assessment Author Feeling nervous, anxious, or on edge 1 07/08/2025 11:20 AM Kameron Bolton MA Not being able to stop or control worrying 0 07/08/2025 11:20 AM Kameron Bolton MA Worrying too much about different things 1 07/08/2025 11:20 AM Kameron Bolton MA Trouble relaxing 0 07/08/2025 11:20 AM Patience Bolton MA Being so restless that it is hard to sit still 0 07/08/2025 11:20 AM Kameron Bolton MA Becoming easily annoyed or irritable 1 07/08/2025 11:20 AM Kameron Bolton MA documented as of this encounter Plan of Treatment Not on file documented as of this encounter Visit Diagnoses Not on filedocumented in this encounter Additional Health Concerns Assessment Noted Time PHQ-9 Depression Total Score: 4 07/08/20 25 11:15 AM EDT documented as of this encounter Care Teams Director Data Relationship Specialty Start Date End Date Beronica Box MD [address] [place] [address] PCP - General Family Medicine 10/07/18 documented as of this encounter
--- OUTSIDE RECORDS SUMMARY | 2025-07-08 13:18 | XMS_ITS | Encounter Summary ---
Author Organization [facility] Address [facility] [address] [place] [address] Phone Care Team Providers Care Lap Runner Name Role Phone Beronica Box MD Primary Care Provider [phone] Encounter Details Date Type Department Care Team (Late st Contact Info) Description 07/31/2023 Office Communication [facility] [address] [place] [id number] Joe Rose MD Social History Tobacco Use Types Packs/Day Years [...] Office Visit [facility] P. [address] [address] Dottie French ARNP [address] [address] documented as of this encounter Visit Diagnoses Not on filedocumented in this encounter Care Teams Lap Runner Relationship Specialty Start Date End Date Beronica Box MD [address] [place] [address] PCP - General Family Medicine 07/03/23 documented as of this encounter
--- OUTSIDE RECORDS SUMMARY | 2025-07-08 13:18 | XMS_ITS | Encounter Summary ---
Author Organization [employer] Address [address] [facility] [address] [place] [address] Care Team Providers Care Bowling Ball Patcher Name Role Phone Beronica Box MD Primary Care Provider [phone] Encounter Details Date Type Department Care Team ([facility] st Contact Info) Description 07/08/2025 Abstract [facility] [address] [place] [address] Patience Mccarthy MA Social History Tobacco Use Types Packs/Day Years [...] Procedure Name Priority Date/Time Associated Diagnosis Comments COLONOSCOPY Routine 10/21/2023 documented in this encounter Results * Colonoscopy (10/21/2023) Colonoscopy Normal Normal 10/21/2023 us Yonathan Martinez MD HEALTH MAINTENANCE Final Result documented in this encounter Visit Diagnoses Not on filedocumented in this encounter Additional Health Concerns Assessment Noted Time PHQ-9 Depression Total Score: 4 07/08/20 25 11:15 AM EDT documented as of this encounter Care Teams Bowling Ball Patcher Relationship Specialty Start Date End Date Beronica Box MD [address] [place] [address] PCP - General Family Medicine 10/07/18 documented as of this encounter
--- OUTSIDE RECORDS SUMMARY | 2025-07-08 13:18 | XMS_ITS | Clinical Summary ---
Author Organization [facility] Address [address] [address] Phone Care Team Providers Care Program Arranger Name Role Phone Beronica Box MD Primary Care Provider [phone] Allergies No known active allergies Medications docusate sodium (COLACE) 100 MG capsuleIndicatio ns:Elevated blood pressure Take 200 mg by mouth every night 07/01/20 23 Active fluticasone (FLONASE) 50 MCG/ACT nasal sprayIndications :Elevated blood pressure Administer 1-2 sprays into each nostril if needed 02/26/20 23 Active loratadine (CLARITIN) 10 MG tabletIndication s:Elevated blood pressure Take 10 mg by mouth in the morning. 12/03/19 23 Active [facility] Soluble Fiber Therapy 500 MG tabletIndication s:Elevated blood pressure Take 1 tablet by mouth in the morning and 1 tablet in the evening. 07/01/20 23 Active hydroCHLOROthiaz pepper 12.5 MG tabletIndication s:Primary hypertension TAKE 1 TABLET BY MOUTH 1 TIME EACH DAY. 90 tablet 3 01/13/20 25 Active cyclobenzaprine (FLEXERIL) 5 MG tablet 5 mg if needed 11/09/19 25 Active losartan (Cozaar) 50 MG tabletIndication s:Essential (primary) hypertension Take 1 tablet (50 mg total) by mouth 1 (one) time each day 30 tablet 5 06/09/20 25 026 Active losartan (Cozaar) 25 MG tabletIndication s:Essential (primary) hypertension Take 1 tablet (25 mg total) by mouth 1 (one) time each day 30 tablet 11 04/16/20 24 025 Discontinued Active Problems Problem Noted Date Diagnosed Date Essential (primary) hypertension 03/21/2023 09/17/2023 Assessment & Plan (04/16/2024 8:49 AM EDT): Blood pressure is well controlled, office readings optimal Continue Losartan 25 mg QD and HCTZ 12.5 mg QD No Edema No medication changes made today Follow low Na diet Avoid NSAIDs/Decongestant medications Assessment & Plan (01/17/2024 12:48 AM EDT): Blood pressure suboptimally controlled, home readings >120s-140 systolic Taking single therapy increased Losartan 25 mg QD Start low dose HCTZ 12.5 mg QD as an add-on Recheck Renal panel in 2 weeks Stable Creat 0.7, eGFR 108 as of 08/2023 Lytes/Ca/PO4 WNL Patient encounter status 12/03/2022 023 Overview (09/17/2023): Last Assessment & Plan: Will refer for Colonoscopy and EGD with GI Specialist Mammography abnormal 12/01/2022 09/17/2023 Overview (09/17/2023): Last Assessment & Plan: -Most recent mammo on 01/18/23 at [facility], BI-RADS 2. Next mammo in 1 year. [...] mammo in 6 mo Dysplasia of cervix uteri 12/01/20222022 Overview (09/17/2023): Last Assessment & Plan: -Followed by [facility], Dr. Maria -PAP on 06/04/22 ASCUS with positive HPV. -PAP on 10/24/22 LSIL. Negative high-risk HPV. -PAP on 05/06/23 ASCUS with negative high-risk HPV History of Helicobacter pylori infection 015 09/17/2023 Overview (09/17/2023): Last Assessment & Plan: - s/p treatment in 2012 - negative stool antigen in January 2021 and negative breath test in May 2021 Gastroesophageal reflux disease 01/17/2015 09/17/2023 Overview (09/17/2023): Last Assessment & Plan: Previously Rx Omeprazole -Pt is trying natural remedy and healthier diet -Seen by GI In February 2023, and plan for EGD and colonoscopy. Not scheduled yet. Chronic constipation 07/31/2012 09/17/2023 Overview (09/17/2023): Last Assessment & Plan: -Seen by GI and prescribed laxatives -Pt reports adequate fiber intake -Check the status of EGD and Colonoscopy Allergic rhinitis 07/31/2012 09/17/2023 Overview (09/17/2023): Last Assessment & Plan: -Continue Loratadine -Continue Flonase Encounters Date Type Department Care Team Description 06/09/2025 8:00 AM EDT Office Visit [facility] [place] [id number] [address] French, Dottie, SAWMILL MANAGER Essential (primary) hypertension (Primary Dx) 04/15/2025 8:00 AM EDT Office Visit [facility] [address] [address] Manolo DottieJACKIE Essential (primary) hypertension (Primary Dx) from Last 3 Months Immunizations Immunization Administration Dates Next Due Hepatitis B 12/16/2001,04/29/2001,03/20/2001 Influenza (IM) Preservative Free 07/12/2017,01/2016,07/01/2015 Influenza, Quadrivalent, Pre servative Free 10/01/2023,12/03/2022,08/05/2021,2019,08/18/2019,09/10/2018 Influenza, Unspecified 06/23/2010,07/05/2009 MMR 05/23/2009 Td 08/16/1999 Tdap 08/05/2021,,07/12/2017,2014,08/07/2012 Varicella 05/23/2009 Social History Tobacco Use Types Packs/Day Years Used Date Smoking Tobacco: Never Smokeless Tobacco: Never Tobacco Cessation:Counseling Given: Not Answered Alcohol Use Standard Drinks/Week Comments Yes 0 (1 standard drink = 0.6 oz pur e alcohol) Comments Unknown Sex and Gender Information Value Date Recorded Sex Assigned at Not on file Legal Sex Female 4:38 PM EDT Gender Identity Not on file Sexual Orientation Not on file Last Filed Vital Signs Vital Sign Reading Time Taken Comments Blood Pressure 130/80 06/09/2025 8:24 AM EDT Pulse 78 06/09/2025 7:56 AM EDT Temperature - - Respiratory Rate - - Oxygen Saturation 98% 06/09/2025 7:56 AM EDT Inhaled Oxygen Concentration - - Weight 65.4 kg (144 lb 3.2 oz) 06/09/2025 7:56 A M EDT Height 149.9 cm (4' 11 ) 07/31/2023 3:27 PM EDT Body Mass Index 29.12 07/31/2023 3:27 PM EDT Plan of Treatment Upcoming Encounters Date Type Department Care Team (Late st Contact Info) Description 09/08/2025 4:15 PM EST Office Visit [facility] [address] [address] FrenchDottieJACKIE [address] [address] Health Maintenance Due Date Last Done Comments Hepatitis B Vaccine (1 of 3 - 19+ 3-dose series) 12/21/1995 12/16/2001, 04/29/2001, 03/20/2001 Pneumococcal Vaccine: Peds ( 0 to 5 Years) and At-Risk Patients (6 to 49 Years) (1 of 2 - PCV) 12/21/1995 Influenza Vaccine (#1) 2025 3, 12/03/2022, 08/05/2021, Additional history exists Procedures Procedure Name Priority Date/Time Associated Diagnosis Comments BASIC METABOLIC PANEL Routine 07/01/2025 4:18 PM EDT Essential (primary) hypertension PROTEIN / CREATININE RATIO, URINE Routine 04/16/2025 4:08 PM EDT Essential (primary) hypertension URINE ALBUMIN / CREATININE RATIO Routine 04/16/2025 4:08 PM EDT Essential (primary) hypertension RENAL FUNCTION PANEL Routine 04/16/2025 4:08 PM EDT Essential (primary) hypertension from Last 3 Months Results * Basic metabolic panel (07/01/2025 4:18 PM EDT) Glucose 87 70 - 99 mg/dL [facility] BUN 17 6 - 24 mg/dL [facility] Creatinine 0.73 0.57 - 1.00 mg/dL [facility] eGFR CKD-EPI CR 2020 101 >59 mL/min/1.7 3 [facility] BUN/Creatinine Ratio 23 9 - 23 [facility] Sodium 141 134 - 144 mmol/L [facility] Potassium 4.3 3.5 - 5.2 mmol/L [facility] Chloride 104 96 - 106 mmol/L [facility] Bicarbonate (CO2) 23 20 - 29 mmol/L [facility] Calcium 9.2 8.7 - 10.2 mg/dL [facility] Blood Venous blood / Unknown 07/01/2025 4:18 PM EDT 07/01/2025 Dottie [facility] LAB BLOOD ORDERABLES Final Result [facility] [address] [place] [address] * Urine Protein / creatinine ratio (04/16/2025 4:08 PM EDT) Creatinine, Ur 88.2 Not Estab. mg/dL [facility] Protein, Ur 6.9 Not Estab. mg/dL [facility] Urine Protein/Creatin ine Ratio 78 0 - 200 mg/g creat [facility] Urine Urine specimen obtained by clean catch procedure / Unknown 04/16/2025 4:08 PM EDT 04/16/[facility]INE ORDERABLES Final Result [facility] [address] [place] [address] * Urine Albumin / Creatinine Ratio (04/16/2025 4:08 PM EDT) Albumin, Urine 4.3 Not Estab. ug/mL [facility] Albumin/Creatin ine Ratio 5 0 - 29 mg/g creat [facility] Comment: Normal: 0 - 29 Moderately increased: 30 - 300 Severely increased: >300 Urine Urine specimen obtained by clean catch procedure / Unknown 04/16/2025 4:08 PM EDT 04/16/2025 Dottie French [facility] LAB URINE ORDERABLES Final Result [facility] [address] [place] [address] * (ABNORMAL) Renal function panel (04/16/2025 4:08 PM EDT) Glucose 90 70 - 99 mg/dL [facility] BUN 20 6 - 24 mg/dL [facility] Creatinine 0.69 0.57 - 1.00 mg/dL [facility] eGFR CKD-EPI CR 2020 107 >59 mL/min/1.7 3 [facility] BUN/Creatinine Ratio 29(H) 9 - 23 [facility] Sodium 138 134 - 144 mmol/L [facility] Potassium 4.0 3.5 - 5.2 mmol/L [facility] Chloride 103 96 - 106 mmol/L [facility] Bicarbonate (CO2) 20 20 - 29 mmol/L [facility] Calcium 9.1 8.7 - 10.2 mg/dL [facility] Albumin 4.4 3.9 - 4.9 g/dL [facility] Phosphorus 3.4 3.0 - 4.3 mg/dL [facility] Blood Venous blood / Unknown 04/16/2025 4:08 PM EDT 04/16/2025 Dottie French SAWMILL MANAGER LAB BLOOD ORDERABLES Final Result [facility] [address] [place] [address] from Last 3 Months Insurance [employer] ([id number]) [facility] ([id number]) Care Teams Program Arranger Relationship Specialty Start Date End Date Beronica Box MD [address] [place] [id number] PCP - General Family Medicine 07/03/23
--- OUTSIDE RECORDS SUMMARY | 2025-07-08 13:18 | XMS_ITS | Encounter Summary ---
Author Organization [employer] Address [address] [facility] [address] [place] [address] Care Team Providers Care Cardiac/Vascular Sonographer Name Role Phone Beronica Box MD Primary Care Provider [phone] Encounter Details Date Type Department Care Team ([facility] Contact Info) Description 06/21/2025 Orders Only [facility] [address] [place] [address] Provider, MD Lexi Social History Tobacco Use [...] HM MAMMOGRAPHY Routine 02/10/2025 10:07 AM EDT documented in this encounter Results * Hm Mammography (02/10/2025 10:07 AM EDT) Anatomical Region Laterality Modality Other Historical Provider HEALTH MAINTENANCE Final Result documented in this encounter Visit Diagnoses Not on filedocumented in this encounter Additional Health Concerns Assessment Noted Time PHQ-9 Depression Total Score: 0 03/10/20 24 11:17 AM EDT documented as of this encounter Care Teams Cardiac/Vascular Sonographer Relationship Specialty Start Date End Date Beronica Box MD [address] [place] [address] PCP - General Family Medicine 10/07/18 documented as of this encounter
--- OUTSIDE RECORDS SUMMARY | 2025-07-08 13:19 | XMS_ITS | Encounter Summary ---
Author Organization [employer] Address [address] [facility] [place] [address] Care Team Providers Care Asic Engineer Name Role Phone Beronica Box MD Primary Care Provider [phone] Encounter Details Date Type Department Care Team ([facility] st Contact Info) Description 09/18/2024 Orders Only [facility] [address] [place] [address] Myranda Brunson Social History Tobacco Use Types Packs/Day Years [...] t he electric, gas, oil or water [employer] threatened to shut off services in your [...] Procedure Name Priority Date/Time Associated Diagnosis Comments PAP/HPV Routine 11/10/2023 12:00 AM EST PAP/HPV Routine 05/06/2023 12:00 AM EDT documented in this encounter Results * (ABNORMAL) PAP/HPV (11/10/2023 12:00 AM EST) Pap Smear 2. ASCUS(A) 1. NIL[facility] HPV Not Detected Undetected, Indeterminat e, Quantitative , Not Detected [facility] us Historical Provider [facility] Edited Result - Final Performing Organization Address [facility] de Phone Number [facility] [address] [place] [address] * (ABNORMAL) PAP/HPV (05/06/2023 12:00 AM EDT) Pap Smear 2. ASCUS(A) 1. NILM [facility] HPV Not Detected Undetected, Indeterminat e, Quantitative , Not Detected [facility] Historical Provider [facility] Edited Result - Final Performing Organization Address [facility] de Phone Number [facility] [address] [place] [address] documented in this encounter Visit Diagnoses Not on filedocumented in this encounter Additional Health Concerns Assessment Noted Time PHQ-9 Depression Total Score: 0 03/10/20 24 11:17 AM EDT documented as of this encounter Care Teams Asic Engineer Relationship Specialty Start Date End Date Beronica Box MD [address] [place] [address] PCP - General Family Medicine 10/07/18 documented as of this encounter
[2025-07-08 14:02] LABS: Alanine Aminotransferase 32 U/L (0-31); Albumin Level 4.6 g/dL (3.5-5.0); Alkaline Phosphatase 105 U/L (39-117); Anion Gap 11 (12-20); Aspartate Amino Transferase 28 U/L (5-31); Blood Urea Nitrogen 14 mg/dL (9-16); Calcium 9.1 mg/dL (8.4-10.2); Carbon Dioxide 28 mmol/L (22-29); Chloride 107 mmol/L (96-108); Cholesterol 189 mg/dL (<200); Estimated Glomerular Filt Rate > 60; HDL Cholesterol 58 mg/dL (>40); Potassium 3.8 mmol/L (3.3-5.1); Sodium 142 mmol/L (135-145); Total Protein 7.6 g/dL (6.5-8.0); Triglycerides 68 mg/dL (<150)
[2025-07-08 14:11] LABS: Reflex LDLD? No
== END 2025-07-08 11:27 | disposition home or self-care (01) ==
LOC: HO.HHCL 11:26
PROVIDERS: PCP Family Medicine; Visit Provider Family Medicine
DX: Z13.1 Encounter for screening for diabetes mellitus (principal); Z13.220 Encounter for screening for lipoid disorders; I10 Essential (primary) hypertension; E55.9 Vitamin D deficiency, unspecified
CPT/HCPCS: 36415; 80053; 80061; 82306; 83036